=== PATIENT | female | born 1975 | race Hispanic/Latino ===

== ENCOUNTER 2018-11-07 19:12 | Emergency (ER) | payer BC, SELFPAY ==
[2018-11-07] MEDS ORDERED: KETOROLAC 30 MG/ML INJ ONE (20:35)
[2018-11-07] MEDS ORDERED: CYCLOBENZAPRINE 10 MG TAB ONE (20:35)
[2018-11-07] MEDS ORDERED: DEXAMETHASONE 10 MG/ML VIAL ONE (20:35)
--- NOTE | 2018-11-07 21:03 | EDPHYS ---
Physician Documentation [facility] Name: Cintia Hernandez Age: 43 yrs Sex: Female : 1975 Arrival Date: 11/07/2018 Time: 19:13 Bed 11 Private MD: ED Physician Abel Seth HPI: 11/07 20:26 This 43 yrs old Female presents to ER via Ambulatory with complaints of Left pm1 Foot Pain, Headache. 20:26 The patient presents with pain, that is acute. The complaints affect the left heel. pm1 Context: The problem was sustained at an unknown site, resulted from an unknown cause, the patient can fully bear weight, the patient is able to ambulate, Problem is a result from a previous injury: No. Onset: The symptoms/episode began/occurred 3 day(s) ago. Modifying factors: The symptoms are alleviated by nothing. Associated signs and symptoms: Pertinent negatives calf tenderness, fever, numbness, swelling, tingling. Treatment prior to arrival includes: no previous treatment. Severity of symptoms: in the emergency department the symptoms are unchanged. The patient has not experienced similar symptoms in the past. Patient also has a headache that is similar to her prior headaches. 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 - Social history:: Smoking status: Patient/guardian denies using tobacco. - Ebola Screening: : Patient denies travel to an Ebola-affected area in the 21 days before illness onset. ROS: 20:26 Constitutional: Negative for fever, chills, and weight loss, Eyes: Negative for injury, pm1 pain, redness, and discharge, ENT: Negative for injury, pain, and discharge, Neck: Negative for injury, pain, and swelling, Cardiovascular: Negative for chest pain, palpitations, and edema, Respiratory: Negative for shortness of breath, cough, wheezing, and pleuritic chest pain, Abdomen/GI: Negative for abdominal pain, nausea, vomiting, diarrhea, and constipation, Back: Negative for injury and pain, : Negative for injury, bleeding, discharge, and swelling. 20:26 Skin: Negative for injury, rash, and discoloration. 20:26 MS/extremity: Positive for pain, of the heel of left foot, Negative for decreased range of motion, deformity. 20:26 Neuro: Positive for headache, Negative for dizziness, numbness, tingling, visual changes, weakness. Exam: 20:26 Constitutional: This is a well developed, well nourished patient who is awake, alert, pm1 and in no acute distress. Head/Face: Normocephalic, atraumatic. Eyes: Pupils equal round and reactive to light, extra-ocular motions intact. Lids and lashes normal. Conjunctiva and sclera are non-icteric and not injected. Cornea within normal limits. Periorbital areas with no swelling, redness, or edema. ENT: Nares patent. No nasal discharge, no septal abnormalities noted. Tympanic membranes are normal and external auditory canals are clear. Oropharynx with no redness, swelling, or masses, exudates, or evidence of obstruction, uvula midline. Mucous membranes moist. Neck: Trachea midline, no thyromegaly or masses palpated, and no cervical lymphadenopathy. Supple, full range of motion without nuchal rigidity, or vertebral point tenderness. No Meningismus. Chest/axilla: Normal chest wall appearance and motion. Nontender with no deformity. No lesions are appreciated. Cardiovascular: Regular rate and rhythm with a normal S1 and S2. No gallops, murmurs, or rubs. Normal PMI, no JVD. No pulse deficits. Respiratory: Lungs have equal breath sounds bilaterally, clear to auscultation and percussion. No rales, rhonchi or wheezes noted. No increased work of breathing, no retractions or nasal flaring. Abdomen/GI: Soft, non-tender, with normal bowel sounds. No distension or tympany. No guarding or rebound. No evidence of tenderness throughout. Back: No spinal tenderness. No costovertebral tenderness. Full range of motion. Skin: Warm, dry with normal turgor. Normal color with no rashes, no lesions, and no evidence of cellulitis. 20:26 Musculoskeletal/extremity: Extremities: grossly normal except: noted in the arch of left foot and heel of left foot: tenderness, There is no evidence of decreased ROM, deformity, swelling, Circulation is intact in all extremities. Vital Signs: 19:25 BP 141 / 79; Pulse 76; Resp 18; Temp 97.7; Pulse Ox 100% on R/A; Weight 63.5 kg (R); aj1 Height 5 ft. 1 in. (154.94 cm) (R); Pain 10/10; 19:25 Body Mass Index 26.45 (63.50 kg, 154.94 cm) aj1 MDM: 20:01 Patient medically screened. pm1 21:00 Data reviewed: vital signs. Data interpreted: Pulse oximetry: on room air is 100 %. pm1 Interpretation: normal. 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 Administered Medications: 20:26 Drug: Decadron 10 mg Route: IM; Site: right gluteus; aj1 21:16 Follow up: Response: No adverse reaction; Pain is decreased aj1 20:26 Drug: Flexeril 10 mg Route: PO; aj1 21:16 Follow up: Response: No adverse reaction; Pain is decreased aj1 20:26 Drug: TORadol 60 mg Route: IM; Site: left gluteus; aj1 21:16 Follow up: Response: No adverse reaction; Pain is decreased aj Disposition: 11/07/18 21:02 Discharged to Home. Impression: Plantar fascial fibromatosis, Headache. - Condition is Stable. - Discharge Instructions: General Headache Without Cause, Plantar Fasciitis. - Prescriptions for Naprosyn 500 mg Oral Tablet - take 1 tablet by ORAL route 2 times per day take with food; 30 tablet. Cyclobenzaprine 10 mg Oral Tablet - take 1 tablet by ORAL route every 8 hours As needed; 30 tablet. - Medication Reconciliation Form, Thank You Letter, Antibiotic Education, Prescription Opioid Use form. - Follow up: Emergency Department; When: As needed; Reason: Worsening of condition. Follow up: Private Physician; When: 2 - 3 days; Reason: Recheck today's complaints, Continuance of care, Re-evaluation by your physician. - Problem is new. - Symptoms have improved. Addendum: 11/10/2018 13:56 Co-signature as Attending Physician, Abel Seth MD Available for consultation at p s1 all times. Signatures: Sylwia Brown RN RN aj1 Claudy Stahl, BIANCA CYBER SECURITY ENGINEER pm1 Abel Seth MD MD ps1 Corrections: (The following items were deleted from the chart) 11/07 21:18 21:02 11/07/2018 21:02 Discharged to Home. Impression: Plantar fascial fibromatosis; aj1 Headache. Condition is Stable. Forms are Medication Reconciliation Form, Thank You Letter, Antibiotic Education, Prescription Opioid Use. Follow up: Emergency Department; When: As needed; Reason: Worsening of condition. Follow up: Private Physician; When: 2 - 3 days; Reason: Recheck today's complaints, Continuance of care, Re-evaluation by your physician. Problem is new. Symptoms have improved. pm1
--- NOTE | 2018-11-07 21:03 | ER ---
Nurse's Notes [facility] Name: Cintia Hernandez Age: 43 yrs Sex: Female : 1975 Arrival Date: 11/07/2018 Time: 19:13 Bed 11 Private MD: Diagnosis: Plantar fascial fibromatosis;Headache Presentation: 11/07 19:23 Presenting complaint: Headaches and her left foot is hurting on the side of her foot, aj1 radiating up to her knee. She can't walk on it because of the pain. Reports that the headache and the foot pain started yesterday. Denies injury to head or left foot. Transition of care: patient was not received from another setting of care. Onset of symptoms was November 06, 2018. Risk Assessment: Do you want to hurt yourself or someone else? Patient reports no desire to harm self or others. Initial Sepsis Screen: Does the patient meet any 2 criteria? No. Patient's initial sepsis screen is negative. Does the patient have a suspected source of infection? No. Patient's initial sepsis screen is negative. Care prior to arrival: None. 19:23 Method Of Arrival: Ambulatory [facility] 19:23 Acuity: ILEANA 4 aj1 Triage Assessment: 19:25 Headache History: The patient has had previous headaches and this one is similar to aj1 previous episodes. General: Appears in no apparent distress. comfortable, Behavior is calm, cooperative, appropriate for age. Pain: Complains of pain in right eye and left foot Pain radiates to left leg Pain currently is 10 out of 10 on a pain scale. Pain began 1 day ago. Also complains of no other associated symptoms. Neuro: Level of Consciousness is awake, alert, obeys commands, Oriented to person, place, time, situation, Moves all extremities. Full function Gait is steady, Speech is normal, Facial symmetry appears normal. Neuro: Reports headache Denies weakness blurred vision dizziness. Cardiovascular: Patient's skin is warm and dry. Respiratory: Airway is patent Respiratory effort is even, unlabored, Respiratory pattern is regular, symmetrical. GI: No signs and/or symptoms were reported involving the gastrointestinal system. : No signs and/or symptoms were reported regarding the genitourinary system. Derm: No signs and/or symptoms reported regarding the dermatologic system. Skin is pink, warm \T\ dry. normal. Musculoskeletal: Range of motion: intact in all extremities. 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 - Social history:: Smoking status: Patient/guardian denies using tobacco. - Ebola Screening: : Patient denies travel to an Ebola-affected area in the 21 days before illness onset. Screenin:27 Abuse screen: Denies threats or abuse. Denies injuries from another. Nutritional aj1 screening: No deficits noted. Tuberculosis screening: No symptoms or risk factors identified. Fall Risk None identified. Assessment: 19:27 Reassessment: see triage assessment. aj1 20:30 Reassessment: Patient appears in no apparent distress at this time. No changes from aj1 previously documented assessment. Patient and/or family updated on plan of care and expected duration. Pain level reassessed. Patient is alert, oriented x 3, equal unlabored respirations, skin warm/dry/pink. 21:18 Reassessment: Patient appears in no apparent distress at this time. No changes from aj1 previously documented assessment. Patient and/or family updated on plan of care and expected duration. Pain level reassessed. Patient is alert, oriented x 3, equal unlabored respirations, skin warm/dry/pink. Vital Signs: 19:25 BP 141 / 79; Pulse 76; Resp 18; Temp 97.7; Pulse Ox 100% on R/A; Weight 63.5 kg (R); aj1 Height 5 ft. 1 in. (154.94 cm) (R); Pain 10/10; 19:25 Body Mass Index 26.45 (63.50 kg, 154.94 cm) aj1 ED Course: 19:13 Patient arrived in ED. as 19:25 Triage completed. aj1 19:25 Arm band placed on Patient placed in an exam room. aj1 19:27 Patient has correct armband on for positive identification. Call light in reach. aj1 19:27 No provider procedures requiring assistance completed. aj1 19:48 Claudy Stahl NP is PHCP. pm1 19:48 Abel Seth MD is Attending Physician. pm1 20:16 Sylwia Brown, RN is Primary Nurse. aj1 21:18 Patient did not have IV access during this emergency room visit. aj1 Administered Medications: 20:26 Drug: Decadron 10 mg Route: IM; Site: right gluteus; aj1 21:16 Follow up: Response: No adverse reaction; Pain is decreased aj1 20:26 Drug: Flexeril 10 mg Route: PO; aj1 21:16 Follow up: Response: No adverse reaction; Pain is decreased aj1 20:26 Drug: TORadol 60 mg Route: IM; Site: left gluteus; aj1 21:16 Follow up: Response: No adverse reaction; Pain is decreased aj1 Outcome: 21:02 Discharge ordered by . pm1 21:18 Discharged to home ambulatory. aj1 21:18 Condition: good 21:18 Discharge instructions given to patient, Instructed on discharge instructions, follow up and referral plans. medication usage, Demonstrated understanding of instructions, follow-up care, medications, Prescriptions given X 2. 21:18 Patient left the ED. aj1 Signatures: Sylwia Brown, RN RN aj1 Fannie Hernandez Patrick, AUTO SELF SERVICE STATION ATTENDANT AUTO SELF SERVICE STATION ATTENDANT pm1
== END 2018-11-07 21:18 | disposition home or self-care (01) ==
LOC: ER 19:12
DX: M72.2 Plantar fascial fibromatosis (principal); R51 Headache; Z88.0 Allergy status to penicillin
CPT/HCPCS: 96372; 99283; J1100